=== PATIENT | male | born 1995 | race Two or more races ===

== ENCOUNTER 2019-12-23 23:06 | Emergency (ER) | payer MEDICAID ==
[~2019-12-23] VITALS: Ht 182.9 cm; Wt 99.8 kg
[2019-12-23] MEDS ORDERED: LORazepam Inj 2mg/ml 1ml IM ONE (23:15)
--- NOTE | 2019-12-23 23:15 | Emergency Room Report ---
History of Present Illness General Chief Complaint: Substance Abuse Source: Patient Present Illness HPI This is a 24-year-old male with a history of atrial septal defect for which she is scheduled for laser surgery next week. He presents with chief complaint of palpitation, chest pain, shortness of breath and dizziness after eating a marijuana edible. Onset was less than 30 minutes prior to arrival. He said he felt numb and dry. No fever chills. No nausea no vomiting. He is felt very panicky. Denies any suicidal thoughts homicidal thought. Denies any other drug use. Came by EMS. Nothing made it better. Nothing made it worse. Allergies: Coded Allergies: No Known Allergies (Unverified , 12/23/19) COVID-19 Screening Contact w/high risk pt: No Recent Travel to affected area: No Experienced COVID-19 symptoms?: No COVID-19 Testing performed [employer]ER: No COVID-19 Screening: Negative COVID-19 Patient History Past Medical History: see triage record, old chart reviewed Past Surgical History: none Pertinent Family History: none Social History: Denies: smoking Immunizations: other Reviewed Nursing Documentation: PMH: Agreed; PSxH: Agreed Nursing Documentation-PMH Past Medical History: No Stated History Review of Systems Eye: Denies: eye pain, blurred vision ENT: Denies: ear pain, nose congestion, throat swelling Respiratory: Reports: shortness of breath; Denies: cough Cardiovascular: Reports: chest pain, palpitations Gastrointestinal: Denies: abdominal pain, diarrhea, nausea, vomiting Musculoskeletal: Denies: back pain, joint pain Skin: Denies: rash Neurological: Reports: numbness, dizziness; Denies: headache Endocrine: Denies: increased thirst, increased urine Hematologic/Lymphatic: Denies: easy bruising All Other Systems: negative except mentioned in HPI Physical Exam Vital Signs Date Time Temp Pulse Resp B/P (MAP) Pulse Ox O2 Delivery O2 Flow Rate FiO2 12/23/19 23:08 98.2 133 22 132/64 (86) 100 Room Air Vitals with tachycardia Sp02 EP Interpretation: reviewed, normal General Appearance: well appearing, no apparent distress, alert Head: normocephalic, atraumatic Eyes: bilateral eye PERRL, bilateral eye EOMI ENT: hearing grossly normal, normal pharynx Neck: full range of motion, supple, no meningismus Respiratory: chest non-tender, lungs clear, normal breath sounds Cardiovascular #1: regular rate, rhythm, no murmur, tachycardia Gastrointestinal: normal bowel sounds, non tender, no mass, no organomegaly, no bruit, non-distended Musculoskeletal: back normal, normal range of motion, gait/station normal Psychiatric: anxious Medical Decision Making Diagnostic Impression: Primary Impression: Panic attack ER Course This patient presents with a drug-induced panic attack. He felt better after dose of Ativan. Heart rate is now 109. He denies any other drug ingestion. No e/o of ACS, PE, dissection to name a few. Will discharge home. EKG Diagnostic Results Rate: tachycardiac Rhythm: NSR ST Segments: other - Incomplete right bundle branch Rhythm Strip Diag. Results EP Interpretation: yes Rate: 109 Rhythm: NSR, no PVC's, no ectopy Last Vital Signs Date Time Temp Pulse Resp B/P (MAP) Pulse Ox O2 Delivery O2 Flow Rate FiO2 12/23/19 23:08 98.2 133 22 132/64 (86) 100 Room Air Status: improved Disposition: HOME, SELF-CARE Condition: Stable Scripts No Active Prescriptions or Reported Meds Additional Instructions: Follow-up with your doctor in 7 days. Abstain from marijuana. Return if worse. Dinesh Yuen MD December 23, 2019 23:15
[2019-12-23 23:18] VITALS: BP 132/64
--- NOTE | 2019-12-23 23:18 | NUR ---
ED Nurse Note: pt biba CO CP due to ingesting a marijuana edible. Pt aao x 4, anxious and talkative. Pt able to ambulate with steady gait. pt states this is his first time consuming an edible. Pt is tachycardic, BP stable. Pt states hx of atrial septal defect with scheduled future surgery with PCP and surgeon. [email or web address] pt placed on monitor and in bed.
--- NOTE | 2019-12-23 23:24 | NUR ---
ED Nurse Note: EKG performed by [facility]
--- NOTE | 2019-12-23 23:29 | NUR ---
ED Nurse Note: all medications administered. pt tolerated well no ss of distress noted.
--- NOTE | 2019-12-23 23:50 | NUR ---
ED Nurse Note: ERMD at bedside
[2019-12-24 00:11] VITALS: BP 125/62
--- NOTE | 2019-12-24 00:11 | NUR ---
ER DISCHARGE NOTE: Patient is cleared to be discharged home per ERMD, pt is aox4, 99% on room air, with stable vital signs. pt was given dc instructions, pt was able to verbalize understanding, pt id band removed. pt is able to ambulate with steady gait. pt took all belongings.
== END 2019-12-24 00:11 | disposition home or self-care (01) ==
LOC: EDBD 23:06 → EMR 23:20
DX: F41.0 Panic disorder [episodic paroxysmal anxiety] (principal); I45.10 Unspecified right bundle-branch block; R00.0 Tachycardia, unspecified
CPT/HCPCS: 93005; 96372; Z7502; 99283